=== PATIENT | female | born 1990 | race Caucasian/White ===

== ENCOUNTER 2019-11-20 17:27 | Emergency (ER) | payer OTHER ==
[~2019-11-20] VITALS: Ht 157.5 cm; Wt 69.0 kg
--- NOTE | 2019-11-20 17:57 | NUR ---
PT C/O NUMBNESS, TINGLING, LOSS OF TASTE OF TONGUE STARTING SATURDAY AND PROGRESSED TO LEFT SIDE OF FACE. MINIMAL FACIAL DROOP NOTED. DENIES ANY NUMBNESS IN EXTREMITIES. PT CONNECTED TO MONITORING. CALL LIGHT IN REACH. AWAITING ORDERS AT THIS TIME.
[2019-11-20 18:00] VITALS: BP 114/62
--- NOTE | 2019-11-20 18:20 | NUR ---
Break RN: ABHISHEK Audrey at bedside for eval. Pt currently resting on gurney. Pt tearful, slight droop noted to left eye. Pt able to move all extremities w/o difficulty. Pt AO x 4. Skin PWD. Resp even and unlabored. Call light within reach.
== END 2019-11-20 19:12 | disposition home or self-care (01) ==
LOC: ED 19:05
DX: G51.0 Bell's palsy (principal)
CPT/HCPCS: 99283